=== PATIENT | male | born 1995 | race Two or more races ===

== ENCOUNTER 2017-09-14 21:36 | Emergency (ER) | payer SELFPAY ==
[2017-09-14 21:47] VITALS: TEMP 98.1
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
[2017-09-15 05:50] VITALS: BP 118/58; PULSE 86; RESP 17; O2SAT 98
== END 2017-09-15 06:28 | disposition home or self-care (01) ==
LOC: H.ER 21:36
DX: F10.129 Alcohol abuse with intoxication, unspecified (principal); J32.9 Chronic sinusitis, unspecified
CPT/HCPCS: 70450; 82948; 96372; 99285; G0480; J1630; J2060